=== PATIENT | female | born 1975 | race Caucasian/White ===

== ENCOUNTER 2017-02-21 00:14 | Emergency (ER) | payer BC ==
[~2017-02-21] VITALS: Ht 160 cm; Wt 62.6 kg
[~2017-02-21 00:14] MED LIST: IBUPROFEN200 MG PO; MACROBID 100MG100 MG PO
--- NOTE | 2017-02-21 00:30 | Emergency Room Report ---
History of Present Illness Time Seen by MD [place] Presenting Problem in Triage Pt arrived:Walked Presenting Problem:PT STATES YESTERDAY SHE HAD SOME PRESSURE AND PAIN IN BLADDER , STATES SHES HAD UTI IN THE PAST AND BELIEVE THATS WHAT IT IS. STATES SHE ALTERNATED WITH TYLENOL AND MOTRIN WITH SOME RELIEF. STATES SHES HAD PERIOD OF INCONT. AND C/O RT FLANK PAIN AND BURNING WITH URINATION. Onset of symptoms date/time:/ or onset unknown for:MEDICAL HX UNKNOWN Treatment Prior to Arrival: MOTRIN AND TYLENOL AROUND 1700. [employer] Provided by: SELF Sepsis Risk Assessment: Temp: 98 B/P: 166/97 MAP: 120 Pulse: 97 Resp: 20 Recent fever? N Clinical Suspician of Infection? N Mental Status: 1 - Regular (Normal Baseline) Sepsis Risk:Possible Sepsis Risk Have you (or family members/close friends) recently traveled outside the [facility]? N If Yes, where/when: Have you had exposure to infectious disease within the past month? N TB? Other? Specify: Comment The patient believes that she has urinary tract infection. She says that for 1 week she has had some urinary frequency and for 2 days has had a lot of pressure in her bladder area. She has urgency and dribbling small amounts of urine. She had one episode today where she could not get to the bathroom before she needed to urinate and was therefore incontinent. She has some very slight RIGHT flank pain that started today, but says her main complaint is bladder discomfort. She saw a little bit of blood after wiping once. She denies fevers, rigors, or vomiting. She has a previous history of UTIs. She performed a urine dip stick today at work which showed 2+ blood and 2+ leukocytes. She says that she had a bad infection in 2013 and was started on Macrobid, but never got better and after couple of weeks had to have a dose of intravenous gentamicin. After that she got better. She is not sure what oral medication she had after the gentamicin was given. She says that her culture showed that the germ was only sensitive to 4 things. No history of kidney stones. A couple of weeks ago, she was treated with amoxicillin and Biaxin for H. pylori. She was intolerant to the Biaxin and this was stopped and she was put on Flagyl. ALLERGIES Coded Allergies: Sulfa (Sulfonamide Antibiotics) (02/21/17) clarithromycin (From BIAXIN) (SYNCOPE 02/21/17) Home Medications Active Scripts NITROFURANTOIN (Nitrofurantoin) 100 MG PO BID #14 CAP Prov: 11/14/13 Reported Medications Ibuprofen (Ibuprofen 200MG) 400 MG PO Q6HP PRN PAIN History Medical History General CAD? No Angina: No AR: No Hypertension? No Hyperlipidemia? No CHF? No DVT? No PE? No COPD? No Asthma? No Anemia? No GERD? No Gastric ulcers? No GI Bleed? No Hernia? No Thyroid Problems? No Hypothyroidism? No CVA? No Seizures? No Diabetes? No Renal Insuffiency? No End Stage Renal Disease? No UTI? No Stones? No BPH? No GB Disease: Yes Nephritic Syndrome? No Asplenia? No Hepatitis? No Sickle Cell Disease? No Arthritis? No Migraines? No Cataracts? No Glaucoma? No MRSA? No HIV? No TB? No Anxiety? No Depression? No Cancer? No More? 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 She had E. coli with a low colony count of only 5000. It was intermediate sensitivity to Augmentin and Macrodantin. Sensitive only to ertapenem, gentamicin, imipenem, and Zosyn. Review of Systems All Other Systems Reviewed and Negative Constitutional denies chills, denies fever Genitourinary dysuria, frequency, hesitancy, hematuria. Physical Exam Vital Signs Vital Signs Date Time Temp Pulse Resp B/P Pulse O2 O2 Flow FiO2 Ox Delivery Rate 02/21 0250 98.4 69 14 128/78 100 02/21 0140 98.4 69 14 128/78 100 02/21 0022 98.0 97 20 166/97 99 General Appearance no apparent distress Eye Exam - bilateral eye normal exam, bilateral eye PERRL, bilateral eye EOMI Ear, Nose, Throat hearing grossly normal, normal ENT inspection Neck normal inspection, non-tender, supple, full range of motion Respiratory Status Yes: trachea midline, chest symmetrical. No: respiratory distress. Lung Sounds bilateral: normal breath sounds, lungs clear. Cardiovascular normal exam, regular rate/rhythm, no peripheral edema, no gallop, no JVD, no murmur, no rub, normal peripheral pulses Peripheral Pulses Pulses normal Yes Gastrointestinal normal bowel sounds, normal exam, non tender, soft, no organomegaly Back no CVA tenderness Extremities normal inspection Neurologic alert, oriented x 3 Mental status normal mood/affect Skin intact, normal color, warm/dry Medical Decision Making LABS/Meds/Orders Pt receiving controlled substance in ED? No Results/Orders Laboratory Tests 02/21/17 0100: Sodium 138, Potassium 3.9, Chloride 104, Carbon Dioxide 27, BUN 13, Creatinine 0.7, Estimated Creat Clear 105, Estimated GFR (MDRD) 92, Glucose 103, Calcium 9.3, Total Bilirubin 0.2, AST 9 L, ALT 13, Alkaline Phosphatase 80, Total Protein 7.3, Albumin 4.0, Globulin 3.3 H, Albumin/Globulin Ratio 1.2, WBC 8.1, RBC 4.55, Hgb 12.8, Hct 40.0, MCV 88.0, RDW 13.2, Plt Count 311, MPV 7.5, Gran % 63.9, Gran # 5.2, Lymphocytes % 28.9, Monocytes % 5.5, Eosinophils % 1.1, Basophils % 0.5, Lymphocytes # 2.3, Monocytes # 0.5, Eosinophils # 0.1, Basophils # 0.0, PUBS MCHC 32.0, MCH 28.1 02/21/17 0025: Urine Color YELLOW, Urine Appearance SL CLOUDY, Urine pH 6.0, Ur Specific [place] >= 1.030, Urine Protein 1+ H, Urine Ketones NEGATIVE, Urine Blood 1+ H , Urine Nitrate POSITIVE H, Urine Bilirubin NEGATIVE, Urine Urobilinogen 0.2, Ur Leukocyte Esterase NEGATIVE, Urine RBC 10-20, Urine WBC 20-50, Ur Squamous Epith Cells 10-20, Amorphous Sediment TRACE, Urine Glucose NEGATIVE Current Medication Orders Sig/Sam Start time Last Medication Dose Route Stop Time Status Admin Gentamicin Sulfate 120 MG ONCE ONE 02/21 145 DC 02/21 Sodium Chloride 100 ML IV 02/215 014 Phenazopyridine HCl 200 MG ONCE ONE 02/21 145 DC 02/21 PO 02/21 146 0148 Phenazopyridine HCl 0 .STK-MED ONE 02/21 0142 DC PO Gentamicin Sulfate 0 .STK-MED ONE 02/210 DC .ROUTE Sodium Chloride 100 ML .STK-MED ONE 02/21 0139 DC IV Sodium Chloride 10 ML PRN PRN 02/21 30 DCD IV 02/22 0029 Orders Procedure Date/time Status IV SALINE LOCK 02/21 30 Active URINALYSIS/COMPLETE 02/21 30 Complete URINE 02/21 30 Complete CBC WITH AUTO DIFF 02/21 30 Complete CHEM 12 PROFILE 02/21 30 Complete CULTURE, URINE 02/21 0025 Active Progress - I believe the patient's findings are consistent with UTI. I doubt kidney stone. I discussed further workup and she prefers treatment of UTI, and does not want workup for kidney stone. The patient is mainly concerned about the possibility of a resistant organism, given her prior history. We have discussed that her prior infection was from E. coli that had no sensitivity to oral medications except for intermediate sensitivity to Macrodantin and Augmentin. I offered a dose of intravenous gentamicin, which is what helped her the last time, and she is agreeable. Departure Departure Disposition DC Home or Self Care(routine) Clinical Impression Primary Impression: Urinary tract infection Qualifiers: Urinary tract infection type: site unspecified Hematuria presence: with hematuria Qualified Code: N39.0 - Urinary tract infection, site not specified Condition STABLE Patient Instructions DI for Urinary Tract Infection (UTI) Additional Instructions Additional instructions for URINARY TRACT INFECTION: See your physician as soon as possible for further evaluation. Return immediately if you have an uncontrollable fever greater than 102 degrees, severe back or abdominal pain, inability to urinate, or repetetive vomiting. Prescriptions Current Visit Scripts Ciprofloxacin HCl (Cipro 500MG TAB) 500 MG PO BID #20 TAB Phenazopyridine HCl (Pyridium) 200 MG PO TID #9 TAB ED Critical Care Critical Care No at 0504
[2017-02-21 00:43] LABS: URINE BILIRUBIN - DIPSTICK NEGATIVE (NEG); URINE BLOOD 1+ (NEG)
--- OUTSIDE RECORDS SUMMARY | 2017-02-21 00:58 | External Medical Summary Rpt | CCD ---
Demographics Preferred Language Honduran Marital Status Unknown Sikhism Affiliation Unknown Race Unknown Ethnic Group Unknown Author Author , SYED LYNCH Address Unknown Phone Immunization No patient found.
--- OUTSIDE RECORDS SUMMARY | 2017-02-21 00:58 | External Medical Summary Rpt | CCD ---
Author Author [employer] Organization [employer] Address Unknown Phone Unavailable Purpose Continuity of Care Document - through 2016
--- OUTSIDE RECORDS SUMMARY | 2017-02-21 00:58 | External Medical Summary Rpt | CCD ---
Demographics Preferred Language South [place] Marital Status Unknown Judaism Affiliation Unknown Race Unknown Ethnic Group Unknown Author Author , SYED LYNCH Address Unknown Phone Immunization No patient found.
--- OUTSIDE RECORDS SUMMARY | 2017-02-21 00:58 | External Medical Summary Rpt | CCD ---
Author Author , SYED LYNCH Address Unknown Phone [email or web address] Purpose Continuity of Care Document - through 2016
--- OUTSIDE RECORDS SUMMARY | 2017-02-21 00:58 | External Medical Summary Rpt | CCD ---
Author Author , SYED LYNCH Address Unknown Phone .[email or web address] Purpose Continuity of Care Document - through 2016
[2017-02-21 01:22] LABS: HEMOGLOBIN 12.8 g/dL (12.2-16.2); LYMPH # 2.3 K/mm3 (0.7-4.5); LYMPH % 28.9 % (10-50.0)
[2017-02-21] MEDS ORDERED: PYRIDIUM200 M2 PO ×2 (01:39→02:53)
[2017-02-21] MEDS ORDERED: CIPRO 500MG TA500 MG PO ×2 (01:39→02:53)
[2017-02-21 02:50] VITALS: BP 128/78
== END 2017-02-21 02:50 | disposition home or self-care (01) ==
LOC: ER 00:14
PROVIDERS: Emergency Medicine
DX: N39.0 Urinary tract infection, site not specified (principal); R31.9 Hematuria, unspecified; Z88.3 Allergy status to other anti-infective agents; Z88.2 Allergy status to sulfonamides